=== PATIENT | female | born 1985 | race African-American/Black ===

== ENCOUNTER 2017-08-03 08:16 | Emergency (ER) | payer MEDICAID, OTHER ==
[~2017-08-03] VITALS: Ht 167.6 cm; Wt 73.0 kg
[~2017-08-03 08:16] MED LIST: ADVIL; IBUPROFEN
[2017-08-03] MEDS ORDERED: DAYQUIL (08:30)
[2017-08-03 11:52] VITALS: BP 134/81
== END 2017-08-03 11:55 | disposition home or self-care (01) ==
LOC: ER 08:49
DX: J02.9 Acute pharyngitis, unspecified (principal); F17.210 Nicotine dependence, cigarettes, uncomplicated; F12.90 Cannabis use, unspecified, uncomplicated
CPT/HCPCS: 71045; 81025; 99283